=== PATIENT | male | born 1965 | race Caucasian/White ===

== ENCOUNTER 2023-07-24 15:43 | Emergency (ER) | payer OTHER, SELFPAY ==
[2023-07-24] VITALS (24 sets, daily range): BP systolic 167–214; BP diastolic 82–141; PULSE 59–76; RESP 9–18; TEMP 36–36.3; O2SAT 98–100
--- NOTE | ~2023-07-24 | XR_ITS ---
EXAM: XR shoulder RT min 2V DATE: 07/24/2023 16:58 HISTORY: POST REDUCTION . COMPARISON: 07/24/2023 at 3:54 PM. FINDINGS: Normal mineralization. Interval reduction. Question of an osseous fragment posterior to th e right humeral head. No lytic or blastic lesion. Moderate AC joint hypertrophy. No erosion or perios teal change. Soft tissues within normal limits. IMPRESSION: Successful interval reduction. Possible ossific fragment posterior to the humeral head, c onsider complete shoulder radiographs for further evaluation. Reviewed, dictated and finalized at location K. IMPRESSION: Successful interval reduction. Possible ossific fragment posterior to the humeral head, consider complete shoulder radiographs for further evaluat ion.
--- NOTE | ~2023-07-24 | XR_ITS ---
EXAMINATION: XR shoulder RT 1V DATE: 07/24/2023 15:56 INDICATION: Suspected right shoulder dislocation post fall TECHNIQUE: AP view of the right shoulder was obtained. COMPARISON: None FINDINGS: There is anterior dislocation of the humeral head with respect to the glenoid. No evident fracture on the provided projection. 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 Soft tissues are u nremarkable. Visualized portions of the lungs are clear. IMPRESSION: Anterior right glenohumeral dislocation. Reviewed, dictated and finalized at location B.
[2023-07-24] MEDS: fentaNYL CITRATE INJ (*CRX) 100 MCG/2 ML VIAL 50 MCG IV PUSH (16:46)
[2023-07-24] MEDS: PROPOFOL IV EMULSION 200 MG/20 ML VIAL 100 MG IV PUSH (16:47)
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
[2023-07-24] MEDS: SODIUM CHLORIDE 0.9% IV 1,000 ML 50 ML (17:10)
== END 2023-07-24 18:14 | disposition home or self-care (01) ==
PROVIDERS: Emergency Provider Emergency Medicine; PCP Emergency Medicine
DX: S43.004A Unspecified dislocation of right shoulder joint, initial encounter (principal); W11.XXXA Fall on and from ladder, initial encounter
CPT/HCPCS: 23650; 73020; 73030; 99285; J2704; J3010; J7030